=== PATIENT | male | born 1970 | race Caucasian/White ===

== ENCOUNTER 2016-11-22 12:03 | Inpatient (IN) | payer BC ==
[~2016-11-22] VITALS: Ht 170.2 cm; Wt 105.2 kg
[~2016-11-22 12:03] MED LIST changes: -ACETAMINOPHEN 1000 MG/100 ML VIAL IV ONE; -ASPI81CH37 PO; -CLAR10CA3 PO; -COLA100C; -CYMB30CA PO; -DEXAMETHASONE SOD PHOS 4 MG/ML VIAL ONE; -FAMOTIDINE 20 MG/2 ML VIAL ONE; -GABA400C5 PO; -GLUC500T4 PO; -HYDR-3366 PO; -HYDR-3583 PO; -LEVA500T20 PO; -LYSI1000; -MIDAZOLAM HCL 2 MG/2 ML VIAL ONE; -MULTTAB22; -VITACAP7 PO; -fentaNYL CITRATE 250 MCG/5 ML AMP ONE
[2016-11-22] MEDS ORDERED: GABA400C5 PO ×2 (12:14)
[2016-11-22] MEDS ORDERED: ASPI81CH37 PO (12:14)
[2016-11-22] MEDS ORDERED: HYDR-3366 PO (12:14)
[2016-11-22] MEDS ORDERED: VITACAP7 PO (12:15)
[2016-11-22] MEDS ORDERED: MULTTAB22 (12:15)
[2016-11-22] MEDS ORDERED: CYMB30CA PO (12:17)
[2016-11-24] MEDS ORDERED: INSULIN HUMAN REGULAR 1,000 UNITS/10 ML VIAL SQ PRN (06:30)
[2016-11-24] MEDS ORDERED: SODIUM CHLORID 0.9% 500 ML IV PRN (06:30)
[2016-11-24] MEDS ORDERED: METOPROLOL TARTRATE 25 MG TAB PO PRN (06:30)
[2016-11-24] MEDS ORDERED: CHLORHEXIDINE GLUCONATE 2 % 1 PACK (2 CLOTHS) TOPICAL PRN (06:30)
[2016-11-24] MEDS: SODIUM CHLOR 0.9% 1000 ML INJ 1,000 ML IV SCH ×2 (06:45→14:41)
[2016-11-24] MEDS: POVIDONE IODINE 5% (ANTISEPSIS KIT) 4 APPLICATIONS EACH NARE PRN ×2 (07:00→14:42)
[2016-11-24] MEDS: LACTATED RINGER'S 1000 ML IV PRN ×2 (07:00→14:42)
[2016-11-24 07:10] VITALS: BP 148/91; PULSE 97; RESP 18; TEMP 98; O2SAT 98
[2016-11-24] MEDS: VANCOMYCIN HCL 1000 MG ON-CALL/NS 250 ML IV SCH ×4 (07:35→14:41)
[2016-11-24] MEDS ORDERED: THROMBIN (TOPICAL) 5,000 UNIT VIAL ONE (07:37)
[2016-11-24] MEDS ORDERED: GELFOAM SIZE 100 ONE (07:37)
--- NOTE | 2016-11-24 08:27 | MH ---
cc: ALLISON NOWAK REGINA J. M.D. DATE OF ADMISSION 11/24/2016 ADMISSION DIAGNOSIS Lumbar degenerative disk disease HISTORY OF PRESENT ILLNESS This is a 46-year-old male who presented to us for an evaluation of low back pain. He has previously undergone an L5/S1 interbody fusion with pedicle screw fixation on 02/21/2015. He states his low back pain improved after the surgery. However, he developed left buttock, thigh, calf pain. An MRI with contrast of the lumbar spine revealed he had developed postoperative scar tissue and underwent a left L5-S1 foraminotomy with lysis of epidural scar tissue on 07/05/2015. He states that his low back pain above the fusion site has progressed over time. He states the pain is affecting his life. He has taking Neurontin 1600 mg daily, Flexeril 10 mg three times a day, [place] 10/325 three times a day and Cymbalta 30 mg daily at bedtime. He currently describes a burning and paresthesia sensation in the left anterior lateral thigh. He also has generalized weakness in the lower extremities. He states that if he lays down with his hips flexed this helps with his pain. He has not been to pain management or physical therapy. He also has chronic neck pain which we have seen him for in the past. He states he has had physical therapy which did not help his back. He also has had pain management and had an injection as requested. The patient states he has had previous diskogram at L3-L4, L4-L5, L5-S1. PAST MEDICAL HISTORY 1. Seasonal allergies. 2. Lumbar degenerative disk disease with a history of L5/S1 translateral interbody fusion with cage and pedicle screw fixation in February of 2015. 3. Previous neuro stimulator placed and subsequent removal. MEDICATIONS Current, 1. Flexeril 10 mg q.8 h p.r.n. muscle spasms. 2. [place] 10/325 p.o. q.4 h p.r.n. pain, 3. Gabapentin 400 mg p.o. in the morning and afternoon and 800 mg q.h.s. 4. Claritin 10 mg p.o. daily. 5. Aspirin 81 mg p.o. daily 6. B complex vitamin with folic acid daily. 7. Multivitamin daily. 8. Cymbalta 30 mg q.h.s. ALLERGIES LATEX PENICILLIN KENALOG TAPE ADHESIVES IF THEY ARE LEFT ON FOR PROLONGED PERIOD OF TIME HE GETS BLISTERS. HE DOES GOOD WITH PAPER TAPE. FAMILY HISTORY His mother is alive 64 years old in fair condition. His father is alive 64 years old with unknown medical history. He has a sister who is alive at 49 years old, unknown medical condition. He has a brother who is alive at 44 years old in good health. He has another brother who is 32 years old in poor health. SOCIAL HISTORY He is a registered nurse. He is . He has three children. He does not smoke and quit smoking in 2013. REVIEW OF SYSTEMS CONSTITUTIONAL: Denies any fever or chills. EARS, NOSE AND THROAT: No pharyngitis, exudates or bloody drainage from his nose CARDIOVASCULAR: Denies any chest pain or palpitations RESPIRATORY: No cough or shortness of breath. GENITOURINARY: No dysuria or hematuria. MUSCULOSKELETAL: Positive for low back pain. SKIN: No rashes or pruritus. NEUROLOGIC: No difficulty with speech or memory. PSYCHIATRIC: No anxiety or depression symptoms. ENDOCRINE: No polyuria, polydipsia. HEMATOLOGIC: No bruising or bleeding tendencies. PHYSICAL EXAMINATION HEAD: Normocephalic, atraumatic. NECK: Supple. No carotid bruits heard on auscultation. LUNGS: Clear to auscultation bilaterally. CARDIAC: Regular rate and rhythm, normal S1, S2. ABDOMEN: Soft, nontender. Positive bowel sounds. SKIN: Reveals no cyanosis or erythema. His previous incision is well-healed without any signs of complication. MUSCULOSKELETAL: He has 5/5 strength in the lower extremities. He ambulates without any assistive device. NEUROLOGIC: He is awake, alert and oriented. Cranial nerves II-XII are grossly intact. Speech is fluent. Comprehension is good. Sensation is diminished but also hypersensitive in the left anterolateral thigh and also diminished in the left calf, otherwise, intact in the lower extremities. Reflexes are 2+ in the lower extremities. IMPRESSION A 46-year-old male with a chronic history of low back pain who underwent an L5-S1 translaminar interbody fusion in February 2015 and states that it helped with his low back pain, but he has had progressively worsening low back pain. He still has chronic left thigh and calf paresthesias and numbness which he has had prior to surgery. The low back pain bothers him more than the left lower extremity symptoms. He has L3-L4 and L4-L5 degenerative disk disease with facet arthropathy and associated lateral recess and foraminal stenosis. He also has cervical degenerative disk disease with disk osteophyte complex involving the C5-C6 as well as the C6-C7 level, but he is more symptomatic from his lumbar spine at this point. He relates that he is on high doses of narcotic pain medications as well as muscle relaxers and gabapentin despite this his pain is not controlled and is requesting surgical intervention. He has also previously had a spinal epidural steroid stimulator placement in the past which did not help and was removed and does not want to consider having this placed again. PLAN We have discussed treatment options with the patient which include continued conservative treatment measures as well as surgical intervention. The patient is requesting that we proceed with surgical intervention. We have recommended and L3-L4 and an L4-L5 transforaminal decompression with interbody fusion. The procedure as well as the risk, benefit, alternative and recovery time were explained in great detail with the patient. No guarantees were given to the results of the surgery. There is a possibility that he could always be even worse after surgery. We offered a second opinion at the [facility], but the patient states he wants to proceed with surgical intervention with us. We have discussed the risks involved with surgery include but are not limited to bleeding, infection, muscle weakness, voice hoarseness, difficulty swallowing, heart attack, stroke, blood clots, non fusion, scar tissue formation among others. The patient states he understands the procedure as well as the risk involved. The surgery was explained using spine models in the office and all of his questions were answered to his satisfaction. The patient is requesting that we proceed and he is therefore scheduled accordingly. Dictated by Nehemiah Curry PA-C MD PATRICIA Farrell/ /4:12 PM /8:21 AM
[2016-11-24] MEDS ORDERED: ARTIFICIAL TEARS OPTH OINT 3.5 APPLIC/3.5 GM TUBO ONE (08:36)
[2016-11-24] MEDS: BUPIVACAINE/EPINEPHRINE 0.5% 50 ML VIAL ONE ×2 (09:28→12:13)
[2016-11-24] MEDS: VANCOMYCIN HCL 1000 MG VIAL ONE ×2 (10:09→12:07)
[2016-11-24] MEDS ORDERED: VANCOMYCIN HCL 1000 MG VIAL ONE (11:49)
[2016-11-24] MEDS ORDERED: ACETAMINOPHEN 1000 MG/100 ML VIAL IV ONE (12:00)
[2016-11-24] MEDS ORDERED: MIDAZOLAM HCL 2 MG/2 ML VIAL IV ONE (12:00)
[2016-11-24] MEDS ORDERED: NEOSTIGMINE 3 MG/3 ML SYR IV ONE (12:00)
[2016-11-24] MEDS ORDERED: ONDANSETRON HCL 4 MG/2 ML VIAL IV PUSH ONE (12:00)
[2016-11-24] MEDS ORDERED: PROPOFOL 200 MG/20 ML AMP IV ONE (12:00)
[2016-11-24] MEDS ORDERED: fentaNYL CITRATE 250 MCG/5 ML AMP IV ONE (12:00)
[2016-11-24] MEDS ORDERED: NORMOSOL R INJ 2,000 ML IV ONE (12:00)
[2016-11-24] MEDS ORDERED: DEXAMETHASONE SOD PHOS 4 MG/ML VIAL IV ONE (12:00)
[2016-11-24] MEDS ORDERED: FAMOTIDINE 20 MG/2 ML VIAL IV ONE (12:00)
[2016-11-24] MEDS ORDERED: LACTATED RINGER'S 1000 ML INJ 1,000 ML IV ONE (12:00)
[2016-11-24] MEDS ORDERED: DO NOT ADM ANY ANTICOAGULANT DRUGS PRN (12:56)
[2016-11-24] MEDS: NS + KCL 20 MEQ INJ 1,000 ML IV SCH (12:59)
[2016-11-24] MEDS ORDERED: cloNIDine HCL 0.1 MG TAB PO PRN (13:00)
[2016-11-24] MEDS ORDERED: CALCIUM GLUCONATE INJ 1 GM in SODIUM CHLORIDE 0.9% INJ 100 ML IV PRN (13:00)
[2016-11-24] MEDS ORDERED: ALUMINUM/MAGNESIUM/SIMETH 30 ML CUP PO PRN (13:00)
[2016-11-24] MEDS ORDERED: ZOLPIDEM TARTRATE 5 MG TAB PO PRN (13:00)
[2016-11-24] MEDS ORDERED: ACETAMINOPHEN 325 MG TAB PO PRN (13:00)
[2016-11-24] MEDS ORDERED: POTASSIUM CHLOR 20 MEQ PREMIX 100 ML IV PRN (13:00)
[2016-11-24] MEDS ORDERED: MENTHOL LOZENGE BUCCAL PRN (13:00)
[2016-11-24] MEDS ORDERED: SODIUM CHLORIDE 0.9% FLUSH 10 ML FLUSH IV FLUSH PRN (13:00)
[2016-11-24] MEDS ORDERED: METOCLOPRAMIDE HCL 10 MG/2 ML VIAL IVS PRN (13:00)
[2016-11-24] MEDS ORDERED: NALOXONE HCL 0.4 MG/ML AMP IV PRN (13:00)
[2016-11-24] MEDS ORDERED: MAGNESIUM HYDROXIDE SUSP 30 ML CUP PO PRN (13:00)
[2016-11-24] MEDS ORDERED: MAGNESIUM SULFATE INJ 2 GM in SODIUM CHLORIDE 0.9% INJ 100 ML IV PRN (13:00)
[2016-11-24] MEDS ORDERED: RESP: ALBUTEROL 2.5 MG/3 ML NEB (PRN) NEB (13:00)
[2016-11-24] MEDS ORDERED: ACETAMINOPHEN/HYDROcodone 325 MG/10 MG TAB PO PRN (13:00)
[2016-11-24] MEDS ORDERED: *MEPERIDINE 25 MG INJ VIAL PERIprocedural Use ONLY ONE (13:08)
[2016-11-24] MEDS ORDERED: *ONDANSETRON 4 MG VIAL PERIprocedural Use ONLY ONE (13:08)
--- NOTE | 2016-11-24 13:10 | PD.OP ---
Keena May MD Operative Report Date of Surgery: Nov 24, 2016 Preoperative Diagnosis: Intractable low back pain with the radiculopathy; lumbar L3-4 and L4-5 degenerative disc disease as well as facet arthropathy; previous L5-S1 fusion Postoperative Diagnosis: Same Procedure: Lumbar L3-4 and L4-5 transforaminal interbody fusion; L3-5 pedicle screw fixation; L3-4 and L4-5 interbody cage placement; microsurgical technique Anesthesia: Gen. endotracheal by Mars Thorne Surgeon: Osmar Murphy M.D. Foxpro Developer(s): Gloria Coulter Operation and Findings: Following initiation of general endotracheal anesthesia, the patient had a Rose catheter placed along with sequential compression devices. A gram of vancomycin was administered intravenously and he was turned in a prone position on a Jean Marie frame, on a Waylon table, and all pressure points adequately padded. The lumbosacral region was then prepped with Chloraprep and sterilely draped with Ioban along the usual sterile draping. A left paraspinal skin incision was then made extending from the L3-S1 levels incorporating the previous L5-S1 level fusion incision after infiltrating the skin with 0.5% Marcaine with epinephrine solution extending down through the fascia. The muscle fibers were split using avascular fatty plane and detached from the underlying facets, transverse process and lateral portion of lamina on the left side and a self-retaining retractor used for exposure. Intraoperative fluoroscopy was also used for level of confirmation along with microscope magnification for further dissection. There was significant facet and ligamentum flavum hypertrophy noted at the L3-4 and L4-5 levels. Left L3-4 and L4-5 facet was resected with a drill bit along with the lamina and there was severe foraminal and lateral recess stenosis from hypertrophied ligamentum flavum and facet which were decompressed. There was significant disc height collapse along with disc protrusion also leading to the foraminal stenosis. Epidural hemostasis was achieved with bipolar cautery and Gelfoam with thrombin. Subsequently entered into the disc space at the L3-4 and L4-5 levels with a #15 blade and alejandra were used for discectomy. I then placed PEEK cages packed with local autograft bone and more local autograft bone was packed adjacent to the cages in each interspace for added interbody fusion. With placement of the cages, I was able to distract the interspace and opened up the foramen further bilaterally. Subsequently in order to facilitate the fusion and provide stabilization, pedicle screw fixation was undertaken using Vandergrift spine screws on entry point at the left L3 and L4 levels at the junction of the transverse process and facet. Subsequently using AP and lateral fluoroscopy tap and screw placement. The previous L5-S1 screw aleks was then removed and the L2-3, L4, L5 and S1 screws were then connected with a aleks and locked in place with caps. The construct appeared very secure at this point. The area was then copiously irrigated with Vancomycin solution and powder. Subcutaneous fat graft wasn't placed overlying exposed dura and nerve roots to reduce in the epidural scar tissue formation. The retractors were removed and the bipolar cautery used for hemostasis. The muscle fascia was then approximated using 2-0 Vicryl interrupted stitches and then 3-0 Vicryl subcuticular stitches also placed in interrupted fashion. The final skin closure was completed with Mastisol and Steri-Strips. A sterile dressing was then applied. The patient then turned in supine position, extubated and taken to recovery room. There were no intraoperative complications. All sponge and needle counts were correct at the end of procedure. Estimated blood loss about 200 ml. Osmar Murphy MD Nov 24, 2016 13:10
[2016-11-24] MEDS ORDERED: *morphine SULFATE 8 MG/ML PERIprocedure ONLY ONE ×2 (13:28→13:43)
--- NOTE | 2016-11-24 14:44 | RADRPT ---
EXAM DATE/TIME: 11/24/2016 08:54 [facility] COMPARISON: SPINE LUMBAR LATERAL ONLY, July 08, 2015, 8:41. SPINE LUMBAR LTD (AP & LAT), February 21, 2015, 8:2 3. INDICATIONS : Lumbar spine fusion; L3/4 L4/5 MEDICAL HISTORY : Unobtainable. SURGICAL HISTORY : Unobtainable. ENCOUNTER: Initial ACUITY: 1 day PAIN SCORE: Non-responsive. LOCATION: Lumbar spine FINDINGS: The AP and lateral views of the lumbar spine were obtained using matrix camera and demonstrate that t he patient is now status post fusion at the L3-4 and L4-5 L5-S1 levels with left-sided pedicle screws and posterior fixation aleks. Metallic markers are now noted in the 3 interspaces. The alignment is an atomic. The study is labeled assuming 5 nonrib-bearing lumbar type vertebra. CONCLUSION: The patient is now status post fusion at the L3-4, L4-5 and L5-S1 levels. Jonas Proctor MD on November 24, 2016 at 14:40 Board Certified Radiologist. This report was verified electronically.
[2016-11-24 14:53] LABS: AUTOMATED NEUTROPHIL # 11.3 TH/MM3 (1.8-7.7); BASOPHIL % 0.2 % (0.0-2.0); EOSINOPHIL % 0.1 % (0.0-4.0); HEMATOCRIT 37.3 % (39.0-51.0); HEMO FLAGS DIFF FINAL; LYMPH % 6.8 % (9.0-44.0); LYMPHOCYTE # 0.8 TH/MM3 (1.0-4.8); MEAN CELL VOLUME 86.9 FL (80.0-100.0); MEAN CORPUSCULAR HEMOGLOBIN 28.9 PG (27.0-34.0); MEAN CORPUSCULAR HGB CONC 33.3 % (32.0-36.0); MONO % 1.4 % (0.0-8.0); NEUT % 91.5 % (16.0-70.0); PLATELET COUNT 254 TH/MM3 (150-450); RED BLOOD COUNT 4.29 MIL/MM3 (4.50-5.90); WHITE BLOOD COUNT 12.3 TH/MM3 (4.0-11.0)
[2016-11-24 15:15] LABS: BICARBONATE 26.4 MEQ/L (21.0-32.0); POTASSIUM 4.4 MEQ/L (3.5-5.1)
[2016-11-24] MEDS: CYCLOBENZAPRINE HCL 10 MG TAB PO SCH ×2 (16:30→18:29)
[2016-11-24 17:48] VITALS: BP 161/72; PULSE 130; RESP 20; TEMP 98.2; O2SAT 95
[2016-11-24] MEDS: GABAPENTIN 400 MG CAP PO SCH ×4 (18:29→21:22)
[2016-11-24] MEDS: VANCOMYCIN INJ 1,000 MG in SODIUM CHLOR 0.9% 250 ML INJ 250 ML IV SCH (18:31)
[2016-11-24] MEDS: HYDROmorphone HCL PCA 6 MG/30 ML IV SCH ×2 (18:43→21:52)
[2016-11-24 20:31] VITALS: BP 130/89; PULSE 113; RESP 20; TEMP 98.5; O2SAT 95
[2016-11-24] MEDS: SODIUM CHLORIDE 0.9% FLUSH 10 ML FLUSH IV FLUSH SCH (21:00)
[2016-11-24] MEDS: DOCUSATE SODIUM 100 MG CAP PO SCH (21:15)
[2016-11-24] MEDS: DULoxetine HCl DR 30 MG CAP PO SCH (21:16)
[2016-11-24] MEDS: ACETAMINOPHEN/HYDROcodone 325 MG/10 MG TAB PO PRN (23:06)
[2016-11-25] VITALS (7 sets, daily range): BP systolic 122–149; BP diastolic 71–92; PULSE 112–125; RESP 18–20; TEMP 98.4–101.6; O2SAT 93–97
[2016-11-25] MEDS: NS + KCL 20 MEQ INJ 1,000 ML IV SCH ×3 (00:54→13:52)
[2016-11-25] MEDS: ACETAMINOPHEN/HYDROcodone 325 MG/10 MG TAB PO PRN ×3 (05:55→17:42)
[2016-11-25] MEDS: VANCOMYCIN INJ 1,000 MG in SODIUM CHLOR 0.9% 250 ML INJ 250 ML IV SCH (05:56)
[2016-11-25] MEDS: PCA - TOTAL MG DILAUDID DELIVERED PER SHIFT OTHER SCH ×3 (06:45→22:00)
[2016-11-25] MEDS: GABAPENTIN 400 MG CAP PO SCH ×3 (08:30→20:42)
[2016-11-25] MEDS: VITAMIN B COMPLEX/VIT C TAB PO SCH (08:30)
[2016-11-25] MEDS: ASPIRIN 81 MG CHEW TAB PO SCH (08:31)
[2016-11-25] MEDS: PANTOPRAZOLE SOD 40 MG DELAYED RELEASE TAB PO SCH (08:31)
[2016-11-25] MEDS: CYCLOBENZAPRINE HCL 10 MG TAB PO SCH ×3 (08:31→17:42)
[2016-11-25] MEDS: DOCUSATE SODIUM 100 MG CAP PO SCH ×2 (08:31→20:42)
[2016-11-25] MEDS: LACTULOSE SYRUP 20 GM/30 ML CUP PO SCH ×2 (08:31→12:19)
[2016-11-25] MEDS: SODIUM CHLORIDE 0.9% FLUSH 10 ML FLUSH IV FLUSH SCH ×2 (08:32→20:42)
[2016-11-25] MEDS: HYDROmorphone HCL PCA 6 MG/30 ML IV SCH (11:21)
--- NOTE | 2016-11-25 12:54 | HHI.NSPN ---
(Hamzah Curry) History Chief Complaint: incisional back pain. (Hamzah Curry) Interval History Patient underwent a L3/L4 and L4/L5 TLIF with cage and pedicle screw fixation. He complains of incisional back pain. He states the pain and hypersensitivity in his left leg is improved. He states he has paresthesias all around the left leg more than the right leg but bilaterally. (Hamzah Curry) Review of Systems General: Negative for: fever, chills, insomnia Respiratory: Negative for: shortness of breath, cough, sputum Cardiovascular: Negative for: chest pain Gastrointestinal: Negative for: nausea, vomitting, diarrhea, constipation ( Hamzah Curry) Exam Results Vital Signs Date Time Temp Pulse Resp B/P Pulse Ox O2 Delivery O2 Flow Rate FiO2 11/25/16 12:36 101.6 122 20 144/87 93 11/24/16 16:00 Room Air 11/24/16 13:45 2 Intake and Output 11/24/16 11/24/16 11/25/16 08:00 16:00 00:00 Intake Total 970 ml Output Total 800 ml 1000 ml Balance 170 ml -1000 ml (Hamzah Curry) Physical Examination Resp: CTA bilaterally Heart: NSR no murmurs Abd: Soft positive bs Skin: No cyanosis or erythema. Incision clean and dry. Eliseo in place. Muscle: Moves LEs with good strength. Full extension of his lower leg exacerbates his low back pain. Neuro: Pt awake and alert. Follows commands well. Speech clear and appropriate. Some improvement in the hypersensitivity to light touch in the thigh. He has paresthesias all over the left leg more than the right leg. ( Hamzah Curry) Lab, Micro, Other Results Last Impressions Lumbar Spine X-Ray 11/24/16 0000 Signed Impressions: Service Date/Time: Thursday, November 24, 2016 08:54 - CONCLUSION: The patient is now status post fusion at the L3-4, L4-5 and L5-S1 levels. Jonas Proctor MD Laboratory Tests Test 11/24/16 14:20 White Blood Count 12.3 TH/MM3 Red Blood Count 4.29 MIL/MM3 Hemoglobin 12.4 GM/DL Hematocrit 37.3 % Mean Corpuscular Volume 86.9 FL Mean Corpuscular Hemoglobin 28.9 PG Mean Corpuscular Hemoglobin 33.3 % Concent Red Cell Distribution Width 14.0 % Platelet Count 254 TH/MM3 Mean Platelet Volume 8.2 FL Neutrophils (%) (Auto) 91.5 % Lymphocytes (%) (Auto) 6.8 % Monocytes (%) (Auto) 1.4 % Eosinophils (%) (Auto) 0.1 % Basophils (%) (Auto) 0.2 % Neutrophils # (Auto) 11.3 TH/MM3 Lymphocytes # (Auto) 0.8 TH/MM3 Monocytes # (Auto) 0.2 TH/MM3 Eosinophils # (Auto) 0.0 TH/MM3 Basophils # (Auto) 0.0 TH/MM3 CBC Comment DIFF FINAL Differential Comment Sodium Level 140 MEQ/L Potassium Level 4.4 MEQ/L Chloride Level 105 MEQ/L Carbon Dioxide Level 26.4 MEQ/L Anion Gap 9 MEQ/L Blood Urea Nitrogen 16 MG/DL Creatinine 0.97 MG/DL Estimat Glomerular Filtration 84 ML/MIN Rate Random Glucose 131 MG/DL Calcium Level 8.0 MG/DL 11/24/16 11/24/16 11/25/16 15:00 23:00 07:00 Intake Total 500 ml 470 ml Output Total 500 ml 1300 ml 1200 ml Balance 0 ml -830 ml -1200 ml Intake Oral 470 ml IV Total 500 ml Output Urine Total 500 ml 1300 ml 1200 ml # Bowel Movements 0 (Hamzah Curry) Medical Decision Making Impression and Plan A: 46 y/o M s/p L3/L4 and L4/L5 TLIF with cage and pedicle screw fixation. P: Continue with pain control. Continue with PT Continue with current care. (Hamzah Curry) Attending Statement The exam, history, and the medical decision-making described in the above note were completed with the assistance of the mid-level provider. I reviewed and agree with the findings presented. I attest that I had a [id number] encounter with the patient on the same day, and personally performed and documented my assessment and findings in the medical record. (Osmar Murphy MD) Hamzah Curry Nov 25, 2016 12:54 Osmar Murphy MD Nov 25, 2016 13:10
[2016-11-25] MEDS ORDERED: ONDANSETRON HCL 4 MG/2 ML VIAL IV PUSH ONE (13:15)
[2016-11-25] MEDS ORDERED: MORPHINE SULFATE 8 MG/ML INJ IV PUSH ONE (13:15)
[2016-11-25] MEDS ORDERED: BISACODYL 10 MG SUPP RECTAL PRN (16:45)
--- NOTE | 2016-11-25 19:34 | RADRPT ---
EXAM DATE/TIME: 11/25/2016 18:47 [facility] COMPARISON: No previous studies available for comparison. INDICATIONS : Atelectasis MEDICAL HISTORY : None. SURGICAL HISTORY : Lumbar surgery ENCOUNTER: Subsequent ACUITY: 3 days PAIN SCORE: 0/10 LOCATION: chest FINDINGS: A single view of the chest demonstrates the lungs to be symmetrically aerated without evidence of mas s, infiltrate or effusion. Mild basilar atelectasis. The cardiomediastinal contours are unremarkable . Osseous structures are intact. CONCLUSION: 1. Mild basilar density most characteristic of atelectasis. Jax Duckworth MD on November 25, 2016 at 19:32 Board Certified Radiologist. This report was verified electronically.
[2016-11-25] MEDS: ONDANSETRON HCL 4 MG/2 ML VIAL IV PRN (20:41)
[2016-11-25] MEDS: DULoxetine HCl DR 30 MG CAP PO SCH (20:42)
[2016-11-25] MEDS ORDERED: ACETAMINOPHEN 1000 MG/100 ML VIAL IV ONE (23:45)
[2016-11-25] MEDS ORDERED: PROPRANOLOL HCL 20 MG TAB PO ONE (23:45)
[2016-11-26] VITALS (8 sets, daily range): BP systolic 113–142; BP diastolic 60–87; PULSE 94–130; RESP 18–20; TEMP 97.7–99.7; O2SAT 90–100
[2016-11-26] MEDS ORDERED: SODIUM CHLOR 0.9% 250 ML INJ 250 ML IV ONE
[2016-11-26 04:12] LABS: AUTOMATED NEUTROPHIL # 10.4 TH/MM3 (1.8-7.7); BASOPHIL % 0.3 % (0.0-2.0); EOSINOPHIL # 0.2 TH/MM3 (0-0.4); EOSINOPHIL % 1.4 % (0.0-4.0); HEMATOCRIT 31.5 % (39.0-51.0); HEMO FLAGS DIFF FINAL; LYMPH % 16.2 % (9.0-44.0); LYMPHOCYTE # 2.3 TH/MM3 (1.0-4.8); MEAN CELL VOLUME 88.3 FL (80.0-100.0); MEAN CORPUSCULAR HEMOGLOBIN 29.5 PG (27.0-34.0); MEAN CORPUSCULAR HGB CONC 33.5 % (32.0-36.0); NEUT % 74.1 % (16.0-70.0); PLATELET COUNT 209 TH/MM3 (150-450); RED BLOOD COUNT 3.57 MIL/MM3 (4.50-5.90); RED CELL DISTRIBUTION WIDTH 13.6 % (11.6-17.2); WHITE BLOOD COUNT 14.1 TH/MM3 (4.0-11.0)
--- NOTE | 2016-11-26 04:15 | PD.CONS ---
[facility] By [facility] Reason for Consult Increased HR and Fever Primary Care Physician Keena May M.D. Diagnoses: History of Present Illness 46 y/o male with a history lumbar degenerative disk disease who underwent a L3- 4 and L4-5 fusion with screw fixation on 11/[address] Murphy. At about 10 pm on 11/25 he developed tachycardia with a fever. Patient was given Tylenol and a fluid bolus, and HR did decrease. [facility] was consulted for management of Tachycardia and fever. Patient was seen and examined, he states he do not feel warm any more like he did. He denies any chest pain, sob, chills, dizziness, or palpitations. He states last time he had a eun surgery he developed a fever post op as well. Review of Systems Except as stated in HPI: all other systems reviewed are Neg Past Family Social History Allergies: Coded Allergies: adhesive (Unverified Allergy, Severe, blisters, 11/24/16) with prolonged use. latex (Unverified Allergy, Mild, RASH, ITCHING, 11/24/16) penicillin G (Unverified Allergy, Unknown, 11/24/16) triamcinolone (Unverified Adverse Reaction, Severe, MENTAL CHANGES, ) Uncoded Allergies: SILK TAPE (Allergy, Mild, SENSITIVITY - SKIN IRRITATION WITH PROLONGED USE , 02/21/15) Past Medical History Spinal stimulator implant seasonal allergies Chronic pain Depression Past Surgical History Prior L5 and S1 fusion Reported Medications Reported Meds & Active Scripts Active Flexeril (Cyclobenzaprine HCl) 10 Mg Tab 10 Mg PO TID Reported Daksha VILLASENOR (Duloxetine HCl) 30 Mg Capdr 30 Mg PO HS B Complex (B-Complex Vitamins) 1 Cap 1 Cap PO DAILY Multi For Him (Multiple Vitamins W/ Minerals) 1 Tab Tab [place] (Hydrocodone-Acetaminophen) 10-325 Mg Tab 1 Tab PO Q4H PRN Aspirin Low Dose (Aspirin) 81 Mg Chew 81 Mg PO DAILY Gabapentin 400 Mg Cap 800 Cap PO HS Gabapentin 400 Mg Cap 400 Cap PO BID Active Ordered Medications Current Medications Medications (Trade) Dose Ordered Sig/Nathan Route Start Time Stop Time Status Last Admin (Aspirin Chew) 81 mg DAILY PO 11/25/16 09:00 (Flexeril) 10 mg TID PO 11/24/16 13:00 11/25/16 17:42 (Cymbalta Dr) 30 mg HS PO 11/24/16 21:00 11/25/16 20:42 (Neurontin) 400 mg BID PO 11/24/16 18:00 11/25/16 12:11 (Neurontin) 800 mg HS PO 11/24/16 21:00 11/25/16 20:42 (Allbee C) 1 tab DAILY PO 11/25/16 09:00 11/25/16 08:30 (Narcan Inj) 0.4 mg UNSCH PRN IV 11/24/16 13:00 (Dilaudid SANDING MACHINE OPERATOR OR TENDER Inj) 6 mg UNSCH IV 11/24/16 13:00 11/25/16 11:21 SANDING MACHINE OPERATOR OR TENDER Dosage Infused (Pha) 1 1 Q8HR OTHER 11/24/16 14:00 11/25/16 14:58 (NS + KCl 20 Meq Inj) 1,000 ml @ 30 mls/hr Q24H IV 11/24/16 12:59 11/25/16 13:52 (NS Flush) 2 ml UNSCH PRN IV FLUSH 11/24/16 13:00 (NS Flush) 2 ml BID IV FLUSH 11/24/16 21:00 11/25/16 20:42 (Colace) 100 mg BID PO 11/24/16 21:00 11/25/16 20:42 (Milk Of Magnesia Liq) 30 ml DAILY PRN PO 11/24/16 13:00 11/25/16 17:33 (Mag-Al Plus Susp Liq) 30 ml Q6H PRN PO 11/24/16 13:00 (Protonix) 40 mg DAILY PO 11/25/16 09:00 11/25/16 08:31 (Reglan Inj) 10 mg Q8H PRN IVS 11/24/16 13:00 Ondansetron HCl 4 mg 4 mg Q6H PRN IV 11/24/16 13:00 11/25/16 20:41 Calcium Gluconate 1 gm/Sodium Chloride 110 ml @ 110 mls/hr UNSCH PRN IV 11/24/16 13:00 Potassium Chloride 100 ml @ 50 mls/hr UNSCH PRN IV 11/24/16 13:00 (Magnesium Sulfate Inj/NS Inj) 104 ml @ 100 mls/hr UNSCH PRN IV 11/24/16 13:00 ([place] 10-325 Mg) 1 tab Q4H PRN PO 11/24/16 13:00 11/24/16 18:29 ([place] 10-325 Mg) 2 tab Q4H PRN PO 11/24/16 13:00 11/25/16 17:42 (Catapres) 0.1 mg Q6H PRN PO 11/24/16 13:00 (Tylenol) 650 mg Q4H PRN PO 11/24/16 13:00 11/25/16 12:12 ([place]prise Jese) 1 lozenge UNSCH PRN BUCCAL 11/24/16 13:00 (Ambien) 5 mg HS PRN PO 11/24/16 13:00 11/24/16 23:06 (Lactulose Liq) 30 ml DAILY PO 11/25/16 09:00 11/25/16 12:19 (Dulcolax Supp) 10 mg DAILY PRN RECTAL 11/25/16 16:45 Family History Patient denies any family history, both parents are still living but does not know there history. Social History Tobacco use: Quit in 2013 Alcohol use: Denies He is a registered nurse. Physical Exam Vital Signs Vital Signs Date Time Temp Pulse Resp B/P Pulse Ox O2 Delivery O2 Flow Rate FiO2 11/26/16 01:30 95 11/26/16 00:00 99.7 130 20 125/84 97 11/25/16 20:00 99.5 122 18 140/92 94 11/25/16 16:15 100.8 125 20 129/85 95 11/25/16 14:58 18 11/25/16 12:36 101.6 122 20 144/87 93 11/25/16 11:21 12 11/25/16 08:40 100.6 118 20 149/87 97 11/25/16 06:45 19 11/25/16 04:44 98.5 112 20 122/71 96 Physical Exam GENERAL: This is a well-nourished, well-developed patient, in no apparent distress. SKIN: No rashes, ecchymoses or lesions. warm and dry. HEAD: Atraumatic. Normocephalic. EYES: Pupils equal round and reactive. ENT: Nose without bleeding, purulent drainage or septal hematoma. Airway patent. NECK: Trachea midline. No JVD or lymphadenopathy. CARDIOVASCULAR: Regular rate and rhythm without murmurs, gallops, or rubs. RESPIRATORY: Clear to auscultation. Breath sounds equal bilaterally. No wheezes , rales, or rhonchi. GASTROINTESTINAL: Abdomen soft, non-tender, nondistended. No hepato-splenomegaly , or palpable masses. No guarding. MUSCULOSKELETAL: Extremities without clubbing, cyanosis, or edema. No joint tenderness, effusion, or edema noted. No calf tenderness. NEUROLOGICAL: Awake and alert. Motor and sensory grossly within normal limits. Normal speech. Result Diagram: 11/24/16 1420 11/24/16 1420 Imaging Last Impressions Chest X-Ray 11/25/16 0000 Signed Impressions: Service Date/Time: November 18:47 - CONCLUSION: 1. Mild basilar density most characteristic of atelectasis. Jax Duckworth MD Lumbar Spine X-Ray 11/24/16 0000 Signed Impressions: Service Date/Time: Thursday, November 24, 2016 08:54 - CONCLUSION: The patient is now status post fusion at the L3-4, L4-5 and L5-S1 levels. Jonas Proctor MD Assessment and Plan Problem List: (1) Fever ICD Code: R50.9 Status: Acute (2) Leukocytosis ICD Code: D72.829 Status: Acute Assessment and Plan 46 y/o male with a history lumbar degenerative disk disease who underwent a L3- 4 and L4-5 fusion with screw fixation on 11/[address] Murphy. At about 10 pm on 11/25 he developed tachycardia with a fever. Leukocytosis, with fever, wbc 12.3 on 11/24, POD 1 lumbar fusion, possible post op infection Patient was treated prior with 2 doses of vancomycin -CBC ordered -NS bolus and IV Tylenol given -Blood cultures ordered and follow -Will order antibiotics if increase in wbc is noted -Cont to monitor Vitals Tachycardia, HR 130-->95, suspected related to fever -Propranolol given x1 with fluid bolus -Cont to monitor Lumbar fusion -Managed by neuro surgery DVT prophylaxis: SCDs We will continue to follow patient during this hospital admission. Discussed Condition With Patient and Betsy Trinidad Nov 26, 2016 04:14
[2016-11-26] MEDS: ACETAMINOPHEN/HYDROcodone 325 MG/10 MG TAB PO PRN ×5 (04:21→21:47)
[2016-11-26 04:33] LABS: BICARBONATE 28.5 MEQ/L (21.0-32.0); MAGNESIUM 2.4 MG/DL (1.5-2.5); POTASSIUM 3.6 MEQ/L (3.5-5.1)
[2016-11-26 04:53] LABS: CALCIUM-PROTEIN CORRECTED 7.7 MG/DL (8.5-10.1)
[2016-11-26] MEDS: PCA - TOTAL MG DILAUDID DELIVERED PER SHIFT OTHER SCH (06:00)
[2016-11-26] MEDS: DOCUSATE SODIUM 100 MG CAP PO SCH ×2 (08:53→21:00)
[2016-11-26] MEDS: LACTULOSE SYRUP 20 GM/30 ML CUP PO SCH (08:53)
[2016-11-26] MEDS: VITAMIN B COMPLEX/VIT C TAB PO SCH (08:53)
[2016-11-26] MEDS: GABAPENTIN 400 MG CAP PO SCH ×3 (08:53→21:47)
[2016-11-26] MEDS: CYCLOBENZAPRINE HCL 10 MG TAB PO SCH ×3 (08:53→17:53)
[2016-11-26] MEDS: PANTOPRAZOLE SOD 40 MG DELAYED RELEASE TAB PO SCH (08:53)
[2016-11-26] MEDS: ASPIRIN 81 MG CHEW TAB PO SCH (08:54)
[2016-11-26] MEDS: LEVOFLOXACIN 500 MG TAB PO SCH (08:56)
[2016-11-26] MEDS: SODIUM CHLORIDE 0.9% FLUSH 10 ML FLUSH IV FLUSH SCH ×2 (11:27→21:00)
--- NOTE | 2016-11-26 11:56 | HHI.NSPN ---
(Hamzah Curry) History Chief Complaint: incisional back pain. (Hamzah Curry) Interval History Patient underwent a L3/L4 and L4/L5 TLIF with cage and pedicle screw fixation. He complains of incisional back pain. He states the pain and hypersensitivity in his left leg is improved. He states he has paresthesias all around the left leg more than the right leg but bilaterally. 11/26/16: Pt awake and alert. complains of hypersensitivity in left more than right leg. No radiculopathy. Incisional back pain. Not using UTILITY BILL COLLECTION CLERK. (Hamzah Curry) Review of Systems General: Negative for: fever, chills, insomnia Respiratory: Negative for: shortness of breath, cough, sputum Cardiovascular: Negative for: chest pain Gastrointestinal: Negative for: nausea, vomitting, diarrhea, constipation ( Hamzah Curry) Exam Results Vital Signs Date Time Temp Pulse Resp B/P Pulse Ox O2 Delivery O2 Flow Rate FiO2 11/26/16 11:20 98.9 95 18 131/81 94 11/24/16 16:00 Room Air 11/24/16 13:45 2 Intake and Output 11/25/16 11/25/16 11/25/16 07:59 15:59 23:59 Intake Total 480 ml Output Total 1200 ml 825 ml 100 ml Balance -1200 ml -345 ml -100 ml (Hamzah Curry) Physical Examination Resp: CTA bilaterally Heart: NSR no murmurs Abd: Soft positive bs Skin: No cyanosis or erythema. Incision clean and dry. Eliseo in place. Muscle: Moves LEs with good strength. Ambulated with rolling walker. Full extension of his lower leg exacerbates his low back pain. Neuro: Pt awake and alert. Follows commands well. Speech clear and appropriate. Some improvement in the hypersensitivity to light touch in the thigh. He has paresthesias all over the left leg more than the right leg. ( Hamzah Curry) Lab, Micro, Other Results Laboratory Tests Test 11/26/16 03:46 White Blood Count 14.1 TH/MM3 Red Blood Count 3.57 MIL/MM3 Hemoglobin 10.5 GM/DL Hematocrit 31.5 % Mean Corpuscular Volume 88.3 FL Mean Corpuscular Hemoglobin 29.5 PG Mean Corpuscular Hemoglobin 33.5 % Concent Red Cell Distribution Width 13.6 % Platelet Count 209 TH/MM3 Mean Platelet Volume 7.9 FL Neutrophils (%) (Auto) 74.1 % Lymphocytes (%) (Auto) 16.2 % Monocytes (%) (Auto) 8.0 % Eosinophils (%) (Auto) 1.4 % Basophils (%) (Auto) 0.3 % Neutrophils # (Auto) 10.4 TH/MM3 Lymphocytes # (Auto) 2.3 TH/MM3 Monocytes # (Auto) 1.1 TH/MM3 Eosinophils # (Auto) 0.2 TH/MM3 Basophils # (Auto) 0.0 TH/MM3 CBC Comment DIFF FINAL Differential Comment Sodium Level 137 MEQ/L Potassium Level 3.6 MEQ/L Chloride Level 103 MEQ/L Carbon Dioxide Level 28.5 MEQ/L Anion Gap 6 MEQ/L Blood Urea Nitrogen 7 MG/DL Creatinine 0.72 MG/DL Estimat Glomerular Filtration 118 ML/MIN Rate Random Glucose 126 MG/DL Calcium Level 7.3 MG/DL Protein Corrected Calcium 7.7 MG/DL Magnesium Level 2.4 MG/DL Total Protein 6.4 GM/DL 11/25/16 11/25/16 11/26/16 14:59 22:59 06:59 Intake Total 480 ml Output Total 825 ml 100 ml Balance -345 ml -100 ml Intake Oral 480 ml Output Urine Total 825 ml 100 ml # Voids 1 (Hamzah Curry) Medical Decision Making Impression and Plan A: 46 y/o M s/p L3/L4 and L4/L5 TLIF with cage and pedicle screw fixation. P: Continue with pain control. Continue with PT Continue with current care. (Hamzah Curry) Attending Statement The exam, history, and the medical decision-making described in the above note were completed with the assistance of the mid-level provider. I reviewed and agree with the findings presented. I attest that I had a [id number] encounter with the patient on the same day, and personally performed and documented my assessment and findings in the medical record. Sinus tachycardia improved with one dose of propranolol beta dagoberto. Low-grade fever has resolved. Encourage incentive spirometry and continue to increase activity status as tolerated. He is not using the UTILITY BILL COLLECTION CLERK and this will be discontinued. He is voiding well and also had a positive bowel movement last evening. Anticipated discharge the next 1-2 days if remains stable and pain controlled. ( Osmar Murphy MD) Hamzah Curry Nov 26, 2016 11:56 Osmar Murphy MD Nov 26, 2016 13:54
--- NOTE | 2016-11-26 15:03 | EKG ---
Date Performed: 11/25/2016 Time Performed: 12:19:24 PTAGE: 46 years EKG: SINUS TACHYCARDIA MARKED LEFT AXIS DEVIATION PATTERN CONSISTENT WITH PULMONARY DISEASE INCO MPLETE RIGHT BUNDLE BRANCH BLOCK MODERATE VOLTAGE CRITERIA FOR LVH, CONSIDER NORMAL VARIANT NONSPECIF IC ST ELEVATION ABNORMAL ECG PREVIOUS TRACING : 11/22/2016 12.19 Since previous tracing, no significant change noted DOCTOR: Calos Gutiérrez Interpretating Date/Time 11/26/2016 15:01:27
[2016-11-26] MEDS: HYDROmorphone HCL PF 1 MG/ML VIAL IV PUSH PRN (16:07)
[2016-11-26] MEDS: ONDANSETRON HCL 4 MG/2 ML VIAL IV PRN (16:11)
--- NOTE | 2016-11-26 18:57 | HHI.PR ---
Subjective Remarks f/u on fever and tachycardia. Patient denies any subjective fevers today, denies any nausea, denies feeling sick. Objective Vital Signs Date Time Temp Pulse Resp B/P Pulse Ox O2 Delivery O2 Flow Rate FiO2 11/26/16 16:33 98.1 96 20 113/72 98 11/26/16 11:20 98.9 95 18 131/81 94 11/26/16 08:00 97.7 100 20 127/77 96 11/26/16 06:00 19 11/26/16 04:19 98.8 94 19 118/60 95 11/26/16 04:00 98.6 94 18 139/67 90 11/26/16 04:00 98.6 94 18 139/67 90 11/26/16 01:30 95 11/26/16 00:00 99.7 130 20 125/84 97 11/25/16 20:55 121 11/25/16 20:00 99.5 122 18 140/92 94 I/O 11/25/16 11/25/16 11/25/16 11/26/16 11/26/16 11/26/16 07:00 15:00 23:00 07:00 15:00 23:00 Intake Total 480 ml 480 ml Output Total 1200 ml 825 ml 100 ml 100 ml Balance -1200 ml -345 ml -100 ml 380 ml Intake Oral 480 ml 480 ml Output Urine Total 1200 ml 825 ml 100 ml 100 ml # Voids 1 4 # Bowel Movements 2 Result Diagram: 11/26/16 0346 11/26/16 0346 Objective Remarks GENERAL: Lying in bed comfortably, awake, in good spirits CARDIOVASCULAR: Regular rate and rhythm without murmurs, gallops, or rubs. RESPIRATORY: Breath sounds equal and clear bilaterally. Unlabored breathing GASTROINTESTINAL: Abdomen soft, non-tender, nondistended. A/P Assessment and Plan 46 y/o male with a history lumbar degenerative disk disease who underwent a L3- 4 and L4-5 fusion with screw fixation on 11/[address] Murphy. At about 10 pm on 11/25 he developed tachycardia with a fever. - Leukocytosis is increasing but I suspect that this is truly a postop stress reaction as the patient is currently afebrile and clinically asymptomatic. - We'll follow blood cultures and reassess him for any further fevers, no antibiotics warranted at this time DVT prophylaxis: SCDs We will continue to follow patient during this hospital admission. Sage Cervantes MD Nov 26, 2016 18:57
[2016-11-26] MEDS: DULoxetine HCl DR 30 MG CAP PO SCH (21:47)
[2016-11-27] MEDS: HYDROmorphone HCL PF 1 MG/ML VIAL IV PUSH PRN ×3 (00:48→09:24)
[2016-11-27] MEDS: ONDANSETRON HCL 4 MG/2 ML VIAL IV PRN ×2 (00:48→06:11)
[2016-11-27 01:17] VITALS: BP 133/63; PULSE 106; RESP 18; TEMP 98.5; O2SAT 100
[2016-11-27] MEDS: ACETAMINOPHEN/HYDROcodone 325 MG/10 MG TAB PO PRN ×3 (02:29→11:17)
[2016-11-27 04:52] VITALS: BP 128/62; PULSE 101; RESP 18; TEMP 98.6; O2SAT 100
[2016-11-27 08:00] VITALS: BP 136/85; PULSE 105; RESP 18; TEMP 98.7; O2SAT 94
[2016-11-27] MEDS: LACTULOSE SYRUP 20 GM/30 ML CUP PO SCH (09:00)
[2016-11-27] MEDS: PANTOPRAZOLE SOD 40 MG DELAYED RELEASE TAB PO SCH (09:24)
[2016-11-27] MEDS: DOCUSATE SODIUM 100 MG CAP PO SCH (09:24)
[2016-11-27] MEDS: CYCLOBENZAPRINE HCL 10 MG TAB PO SCH (09:24)
[2016-11-27] MEDS: VITAMIN B COMPLEX/VIT C TAB PO SCH (09:24)
[2016-11-27] MEDS: GABAPENTIN 400 MG CAP PO SCH (09:24)
[2016-11-27] MEDS: LEVOFLOXACIN 500 MG TAB PO SCH (09:24)
[2016-11-27] MEDS: ASPIRIN 81 MG CHEW TAB PO SCH (09:24)
[2016-11-27] MEDS: SODIUM CHLORIDE 0.9% FLUSH 10 ML FLUSH IV FLUSH SCH (09:25)
[2016-11-27] MEDS ORDERED: CYCL1TAB29 PO (11:27)
[2016-11-27] MEDS ORDERED: LEVA500T20 PO (11:27)
[2016-11-27] MEDS ORDERED: HYDR-3583 PO (11:27)
--- NOTE | 2016-11-27 11:30 | HHI.NSPN ---
(Hamzah Curry) History Chief Complaint: incisional back pain. (Hamzah Curry) Interval History Patient underwent a L3/L4 and L4/L5 TLIF with cage and pedicle screw fixation. He complains of incisional back pain. He states the pain and hypersensitivity in his left leg is improved. He states he has paresthesias all around the left leg more than the right leg but bilaterally. 11/26/16: Pt awake and alert. complains of hypersensitivity in left more than right leg. No radiculopathy. Incisional back pain. 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 11/27/16: Pt awake and alert. Sitting up in chair. Complains of spasms radiating into the right hip. Hypersensitivity in LEs left more than right. Pt wants to go home. He states he has home equipment. (Hamzah Curry) Review of Systems General: Negative for: fever, chills, insomnia Respiratory: Negative for: shortness of breath, cough, sputum Cardiovascular: Negative for: chest pain Gastrointestinal: Negative for: nausea, vomitting, diarrhea, constipation ( Hamzah Curry) Exam Results Vital Signs Date Time Temp Pulse Resp B/P Pulse Ox O2 Delivery O2 Flow Rate FiO2 11/27/16 08:00 98.7 105 18 136/85 94 11/24/16 16:00 Room Air 11/24/16 13:45 2 Intake and Output 11/26/16 11/26/16 11/27/16 08:00 16:00 00:00 Intake Total 480 ml Output Total 100 ml Balance 380 ml (Hamzah Curry) Physical Examination Resp: CTA bilaterally Heart: NSR no murmurs Abd: Soft positive bs Skin: No cyanosis or erythema. Incision clean and dry. [place] in place. Muscle: Moves LEs with good strength. Ambulated with rolling walker. Full extension of his lower leg exacerbates his low back pain. Neuro: Pt awake and alert. Follows commands well. Speech clear and appropriate. Hypersensitivity to light touch in the thigh. He has paresthesias all over the left leg more than the right leg. (Hamzah Curry) Lab, Micro, Other Results Last Impressions Chest X-Ray 11/25/16 0000 Signed Impressions: Service Date/Time: November 18:47 - CONCLUSION: 1. Mild basilar density most characteristic of atelectasis. Jax Duckworth MD Lumbar Spine X-Ray 11/24/16 0000 Signed Impressions: Service Date/Time: Thursday, November 24, 2016 08:54 - CONCLUSION: The patient is now status post fusion at the L3-4, L4-5 and L5-S1 levels. Jonas Proctor MD 11/26/16 11/26/16 11/27/16 15:00 23:00 07:00 Intake Total 480 ml Output Total 100 ml 5 ml Balance 380 ml -5 ml Intake Oral 480 ml Output Urine Total 100 ml 5 ml # Voids 4 # Bowel Movements 2 (Hamzah Curry) Medical Decision Making Impression and Plan A: 46 y/o M s/p L3/L4 and L4/L5 TLIF with cage and pedicle screw fixation. P: Discharge pt home Follow up for staple removal (Hamzah Curry) Attending Statement The exam, history, and the medical decision-making described in the above note were completed with the assistance of the mid-level provider. I reviewed and agree with the findings presented. I attest that I had a [id number] encounter with the patient on the same day, and personally performed and documented my assessment and findings in the medical record. (Osmar Murphy MD) Hamzah Curry Nov 27, 2016 11:30 Osmar Murphy MD Nov 27, 2016 14:01
[2016-11-27 12:00] VITALS: BP 138/79; PULSE 94; RESP 19; TEMP 97.4; O2SAT 98
[2016-12-28] MEDS ORDERED: CYCL1TAB29 PO (12:33)
--- NOTE | 2017-01-03 09:54 | HHI.DS ---
Discharge Summary Admission Date Nov 24, 2016 at 06:09 Discharge Date: Nov 27, 2016 Admitting Diagnosis Lumbar Degenerative Disc Disease (1) Fever Diagnosis: Secondary ICD Code: R50.9 - Fever, unspecified Status: Acute (2) Leukocytosis Diagnosis: Secondary ICD Code: D72.829 - Elevated white blood cell count, unspecified Status: Acute (3) Severe low back pain Diagnosis: Principal ICD Code: M54.5 - Low back pain Status: Acute (4) Facet arthropathy, lumbar Diagnosis: Principal ICD Code: M46.96 - Unspecified inflammatory spondylopathy, lumbar region Status: Acute (5) Lumbar degenerative disc disease Diagnosis: Principal ICD Code: M51.36 - Other intervertebral disc degeneration, lumbar region Status: Acute (6) Lumbar foraminal stenosis Diagnosis: Principal ICD Code: M99.83 - Other biomechanical lesions of lumbar region Status: Acute (7) Lumbar disc prolapse with compression radiculopathy ICD Code: M51.16 - Intervertebral disc disorders with radiculopathy, lumbar region Status: Acute Procedures Lumbar L3-4 and L4-5 transforaminal interbody fusion; L3-5 pedicle screw fixation; L3-4 and L4-5 interbody cage placement; microsurgical technique by Dr. Murphy on 11/24/16. Brief History This is a 46-year-old male who presented to us for an evaluation of low back pain. He has previously undergone an L5/S1 interbody fusion with pedicle screw fixation on 02/21/15. He states his low back pain improved after the surgery. However, he developed left buttocks, thigh, calf pain. An MRI with contrast of the lumbar spine revealed he had developed postoperative scar tissue and underwent a left L5/S1 foraminotomy with lysis of epidural scar tissue on . He states that his low back pain above the fusion site has progressed over time. He states the pain is affecting his life. He is taking Neurontin 1600 mg daily, Flexeril 10 mg 3 times a day, [place] 10/325 3 times a day and Cymbalta 30 mg daily at bedtime. He currently describes a burning and paresthesias sensation in the left anterior thigh. He also has generalized weakness in his lower extremities. He states that if he lays down with his hips flexed this helps with his pain. He has not been to pain management or physical therapy. He has chronic neck pain which we have seen her for in the past. He states he has physical therapy which did not help his back pain. He also has had pain management with injections. He has previously undergone a discogram at L3/L4, L4/L5 and L5/S1. Imaging Patient previously had a discogram was positive the L3/L4 level. MRI of the lumbar spine reveals L3/L4 and L4/L5 degenerative disc disease with facet arthropathy and associated lateral recess and foraminal stenosis. Hospital Course Patient underwent the above-noted procedure performed by Dr. Murphy. There was no intraoperative complications. Postoperatively patient was admitted to the medical surgical floor. Patient's pain was controlled on a PACKING CHECKER. Physical therapy was consulted and his activity status was increased. Hospitalist was consulted for medical management of his sinus tachycardia. Patient was discharged home in stable condition. Pt Condition on Discharge: Stable Discharge Disposition: Discharge Home Discharge Instructions DIET: Follow Instructions for: Diabetic Diet ACTIVITIES You can perform: Shower Only-No Bath Activities to Avoid: Lifting/Bending, Prolonged Standing, Strenuous Activity, Bathing, Driving ADDITIONAL Activity Instructio: Lumbar brace on when sitting, standing or walking. New Medications: Hydrocodone-Acetaminophen (Hydrocodone-Acetaminophen) 10-325 mg Tab 1 TAB PO Q4H PRN for PAIN SCALE 1 TO 5, #60 TAB Levofloxacin (Levaquin) 500 Mg Tablet 500 MG PO DAILY, #7 Continued Medications: Aspirin (Aspirin Low Dose) 81 Mg Chew 81 MG PO DAILY, TAB 0 Refills B-Complex Vitamins (B Complex) 1 Cap 1 CAP PO DAILY for Nutritional Supplement, #30 CAP [address] (Michaelmbalta ) 30 Mg Capdr 30 MG PO HS, #30 CAP 0 Refills Gabapentin (Gabapentin) 400 Mg Cap 400 CAP PO BID, #30 CAP 0 Refills Gabapentin (Gabapentin) 400 Mg Cap 800 CAP PO HS, #30 CAP 0 Refills Multiple Vitamins W/ Minerals (Multi For Him) 1 Tab Tab Discontinued Medications: Cyclobenzaprine (Flexeril) 10 Mg Tab 10 MG PO TID for Muscle Spasm, #60 TAB 1 Refill Hydrocodone-Acetaminophen ([place]) 10-325 Mg Tab 1 TAB PO Q4H PRN for PAIN, TAB 0 Refills Hamzah Curry Jan 03, 2017 09:54
[2017-01-05] MEDS ORDERED: LYSI1000 (15:50)
[2017-01-05] MEDS ORDERED: CLAR10CA3 PO (15:50)
[2017-01-05] MEDS ORDERED: COLA100C (15:50)
[2017-01-05] MEDS ORDERED: GLUC500T4 PO (15:50)
== END 2016-11-27 12:30 | disposition home or self-care (01) | DRG 460 ==
LOC: HSDI 11-24 06:09 → N05A 11-24 17:07
PROVIDERS: ADMIT Neurological Surgery; ATTEND Neurological Surgery
PROC: 0ST20ZZ Resection of Lumbar Vertebral Disc, Open Approach (ICD-10-PCS; 2016-11-24)
PROC: 0SG10AJ Fusion of 2 or more Lumbar Vertebral Joints with Interbody Fusion Device, Posterior Approach, Anterior Column, Open Approach (ICD-10-PCS; principal; 2016-11-24 08:26)
DX: M51.16 Intervertebral disc disorders with radiculopathy, lumbar region (principal); F32.9 Major depressive disorder, single episode, unspecified; M48.06 Spinal stenosis, lumbar region; G89.29 Other chronic pain; M46.96 Unspecified inflammatory spondylopathy, lumbar region; M50.323 Other cervical disc degeneration at C6-C7 level; M25.78 Osteophyte, vertebrae; J30.2 Other seasonal allergic rhinitis; R50.9 Fever, unspecified; D72.829 Elevated white blood cell count, unspecified; R00.0 Tachycardia, unspecified; Z98.1 Arthrodesis status; Z79.899 Other long term (current) drug therapy; Z87.891 Personal history of nicotine dependence
CPT/HCPCS: 36415; 71010; 71020; 72100; 76000; 76937; 80048; 80053; 81001; 83735; 84155; 85025; 85610; 85730; 86850; 86900; 86901; 86920; 87040; 93005; 94150; C1713; J0131; J1100; J1170; J2175; J2250; J2270; J2405; J2710; J3010; J3370; J3480; J7050; J7120

== ENCOUNTER → 2016-11-22 | Outpatient (CLI) | payer BC ==
[~2016-11-22] MED LIST: ACETAMINOPHEN 1000 MG/100 ML VIAL IV ONE; ASPI81CH37 PO; CLAR10CA3 PO; COLA100C; CYCL1TAB29 PO; CYMB30CA PO; DEXAMETHASONE SOD PHOS 4 MG/ML VIAL ONE; FAMOTIDINE 20 MG/2 ML VIAL ONE; GABA400C5 PO; GLUC500T4 PO; HYDR-3366 PO; HYDR-3583 PO; LEVA500T20 PO; LYSI1000; MIDAZOLAM HCL 2 MG/2 ML VIAL ONE; MULTTAB22; VITACAP7 PO; fentaNYL CITRATE 250 MCG/5 ML AMP ONE
[2016-11-22 12:33] LABS: AUTOMATED NEUTROPHIL # 3.2 TH/MM3 (1.8-7.7); BASOPHIL % 0.7 % (0.0-2.0); EOSINOPHIL # 0.3 TH/MM3 (0-0.4); EOSINOPHIL % 4.4 % (0.0-4.0); HEMATOCRIT 39.2 % (39.0-51.0); HEMO FLAGS DIFF FINAL; LYMPH % 39.5 % (9.0-44.0); LYMPHOCYTE # 2.7 TH/MM3 (1.0-4.8); MEAN CELL VOLUME 86.3 FL (80.0-100.0); MEAN CORPUSCULAR HEMOGLOBIN 29.6 PG (27.0-34.0); MEAN CORPUSCULAR HGB CONC 34.3 % (32.0-36.0); MONO % 8.7 % (0.0-8.0); NEUT % 46.7 % (16.0-70.0); PLATELET COUNT 280 TH/MM3 (150-450); RED BLOOD COUNT 4.55 MIL/MM3 (4.50-5.90); RED CELL DISTRIBUTION WIDTH 13.9 % (11.6-17.2); WHITE BLOOD COUNT 6.9 TH/MM3 (4.0-11.0)
[2016-11-22 12:42] LABS: APTT (PATIENT) 28.5 SEC (24.3-30.1); INTERNATIONAL NORMALIZED RATIO 0.9 RATIO; PROTHROMBIN TIME - PATIENT 10.1 SEC (9.8-11.6)
[2016-11-22 12:55] LABS: BLOOD, URINE NEG (NEG); COMMENT (UR) CULT NOT INDICATED; CULTURE IF INDICATED CULT NOT INDICATED; GLUCOSE,URINE NEG (NEG); KETONE, URINE NEG (NEG); MUCUS URINE FEW /lpf (OCC); NITRITE,URINE NEG (NEG); URINE COLOR LIGHT-YELLOW (YELLW/STRAW)
[2016-11-22 13:05] LABS: ALT (GPT) 40 U/L (12-78); ANION GAP 5 MEQ/L (5-15); AST (GOT) 31 U/L (15-37); BICARBONATE 27.7 MEQ/L (21.0-32.0); BLOOD UREA NITROGEN 19 MG/DL (7-18); CHLORIDE 104 MEQ/L (98-107); GLOMERULAR FILTRATION RATE 100 ML/MIN (>89); GLUCOSE,FASTING 88 MG/DL (74-99); POTASSIUM 3.8 MEQ/L (3.5-5.1); SODIUM (NA) 137 MEQ/L (136-145)
[2016-11-22 13:08] LABS: ALKALINE PHOSPHATASE 84 U/L (45-117); TOTAL BILIRUBIN ADULT 0.3 MG/DL (0.2-1.0)
--- NOTE | 2016-11-22 14:41 | RADRPT ---
EXAM DATE/TIME: 11/22/2016 13:02 [facility] COMPARISON: No previous studies available for comparison. INDICATIONS : Evaluate for pneumonia, pneumothorax or communicable disease. Preop chest for lumbar spine fusion on 11/24/16, former smoker, no chest complaints MEDICAL HISTORY : None. SURGICAL HISTORY : lumbar spine ENCOUNTER: Initial ACUITY: 1 day PAIN SCORE: 0/10 LOCATION: Bilateral chest FINDINGS: PA and lateral views of the chest demonstrate the lungs to be symmetrically aerated without evidence of mass, infiltrate or effusion. The cardiomediastinal contours are unremarkable. Osseous structure s are intact. CONCLUSION: No acute disease. Daniel Pereira MD FACR on November 22, 2016 at 14:39 Board Certified Radiologist. This report was verified electronically.
--- NOTE | 2016-11-22 16:33 | EKG ---
Date Performed: 11/22/2016 Time Performed: 12:19:45 PTAGE: 46 years EKG: Sinus rhythm MARKED LEFT AXIS DEVIATION Incomplete right bundle branch block MINIMAL VOLTAGE CRITERIA FOR LVH, CO NSIDER NORMAL VARIANT ABNORMAL ECG Compared to the previous tracing Incomplete right bundle branch bl ock is now present NO PREVIOUS TRACING DOCTOR: Manuel Adams Interpretating Date/Time 11/22/2016 16:31:28
== END ==
LOC: CPRE 11:57
PROVIDERS: ATTEND Neurological Surgery
DX: Z01.810 Encounter for preprocedural cardiovascular examination (principal); Z01.811 Encounter for preprocedural respiratory examination; Z01.812 Encounter for preprocedural laboratory examination; M46.96 Unspecified inflammatory spondylopathy, lumbar region; M51.36 Other intervertebral disc degeneration, lumbar region; M99.83 Other biomechanical lesions of lumbar region; R94.31 Abnormal electrocardiogram [ECG] [EKG]
CPT/HCPCS: 36415; 71020; 80053; 81001; 85025; 85610; 85730; 86850; 86900; 86901; 86920; 93005